=== PATIENT | female | born 1970 | race Caucasian/White ===

== ENCOUNTER 2020-01-31 14:22 | Outpatient (CLI) | payer OTHER, SELFPAY ==
--- NOTE | ~2020-01-31 | US_ITS ---
EXAMINATION: US thyroid EXAM DATE: 01/31/2020 14:54 INDICATION: Single nontoxic thyroid nodule. TECHNIQUE: Multiple grayscale and Doppler images of the thyroid were obtained (by a technologist who performed the scan) and subsequently reviewed. Individual nodules and recommendations may be reporte d in accordance with TI-RADS system as designated by the 2017 ACR White Paper TI-RADS committee. The re is no prior study for comparison. FINDINGS: The right thyroid lobe measures 5.5 x 1.5 x 1.8 cm, the left measured 4.6 x 0.8 x 1.0 cm. Mildly diff usely heterogeneous thyroid echogenicity. There are scattered subcentimeter thyroid nodules, largest in the right thyroid lobe category TR 4 measuring 9 mm. IMPRESSION: Multiple small thyroid nodules; optional one-year follow-up ultrasound. Reviewed, dictated and finalized at location [facility].
== END 2020-01-31 14:23 | disposition home or self-care (01) ==
LOC: ANHIMG 14:26
PROVIDERS: PCP Physician Assistant; Visit Provider Otolaryngology
DX: E04.1 Nontoxic single thyroid nodule (principal)
CPT/HCPCS: 76536

== ENCOUNTER 2020-12-13 16:07 | Outpatient (CLI) | payer OTHER, SELFPAY ==
--- NOTE | ~2020-12-13 | US_ITS ---
EXAMINATION: US thyroid EXAM DATE: 12/13/2020 16:33 INDICATION: Thyroid nodule. TECHNIQUE: Multiple grayscale and Doppler images of the thyroid were obtained (by a technologist who performed the scan) and subsequently reviewed. Individual nodules and recommendations may be reporte d in accordance with TI-RADS system as designated by the 2017 ACR White Paper TI-RADS committee. Comp sharonson is made to prior examination from 01/31/2020. FINDINGS: The right thyroid lobe measures 4.8 x 1.6 x 1.7 cm, the left measuring 4.5 x 1.2 x 1.2 cm. Mildly dif fusely heterogeneous thyroid echogenicity with scattered small thyroid nodules. Largest nodule identified is a right thyroid lobe inferiorly measuring 9 x 5 x 8 mm, mixed cystic and solid (1 point), hypoechoic (2 points), wider than tall, smooth well defined margin, without echogen ic foci, category TR3 for this nodule. These dimensions are not significantly changed compared to pr evious examination. IMPRESSION: 1. Mild thyromegaly. 2. Small thyroid nodules unchanged, likely benign. Return to clinical follow-up. If additional palpa ble abnormality develops, consider repeat ultrasound. Reviewed, dictated and finalized at location B. IMPRESSION: 1. Mild thyromegaly. 2. Small thyroid nodules unchanged, likely benign. Return to clinical follow-u p. If additional palpable abnormality develops, consider repeat ultrasound.
== END 2020-12-13 16:08 | disposition home or self-care (01) ==
PROVIDERS: PCP Physician Assistant; Visit Provider Otolaryngology
DX: E04.2 Nontoxic multinodular goiter (principal)
CPT/HCPCS: 76536

== ENCOUNTER 2021-08-12 10:10 | Outpatient (CLI) | payer OTHER, SELFPAY ==
--- NOTE | ~2021-08-12 | CT_ITS ---
EXAMINATION: CT diagnostic chest w con DATE: 08/12/2021 10:39 INDICATION: Chest pain TECHNIQUE: Computed tomography (CT) of the chest was performed with 75 cc Omnipaque 350 intravenous c ontrast. Automated exposure control and iterative reconstruction technique were employed. Exam dose: 178.63 mGy-cm total exam DLP. COMPARISON: None FINDINGS: 7 mm hypoattenuating lesion of the right lobe of the thyroid gland. Normal heart size. No pericardial effusion. No thoracic aortic aneurysm or dissection. No hilar or mediastinal mass lesion or lymphadenopathy. No pulmonary infiltrate or consolidation or pulmonary mass lesion. No pneumothorax. Diffuse hepatic steatosis. Normal morphology of the adrenal glands. Included skeletal structures are unremarkable; no suspicious osteolytic or osteoblastic lesions. IMPRESSION: No significant abnormality of the chest 7 mm hypoattenuating lesion of right lobe of thyroid gland Reviewed, dictated and finalized at [facility]. Reviewed, dictated and finalized at location A.
== END 2021-08-12 10:11 | disposition home or self-care (01) ==
PROVIDERS: PCP Physician Assistant; Visit Provider Nurse Practitioner
DX: R07.89 Other chest pain (principal)
CPT/HCPCS: 71260; Q9967

== ENCOUNTER 2022-11-30 14:49 | Outpatient (CLI) | payer OTHER, SELFPAY ==
--- NOTE | ~2022-11-30 | MM_ITS ---
EXAMINATION: MM screening pepper BI w audrey HISTORY: Screening TECHNIQUE: Craniocaudal and mediolateral oblique 3-D tomosynthesis images were obtained and synthetic 2-D images were generated. CAD analysis was submitted and interpreted. COMPARISON: Comparison to multiple prior studies sequentially, with oldest reviewed study dated 10/16/2009. BREAST PARENCHYMAL COMPOSITION: Breast composed of scattered areas of fibroglandular density FINDINGS: Decreased size of biopsy-proven benign mass upper outer quadrant of the left breast compare d with prior studies. There is no evidence of suspicious mass, calcification, or architectural distor tion to suggest malignancy in either breast. There has been no suspicious interval change. IMPRESSION: 1. No mammographic evidence of malignancy. 2. Recommend routine screening mammography in one year. BI-RADS Category 2: Benign finding(s). Reviewed, dictated and finalized at location A.
== END 2022-11-30 14:50 | disposition home or self-care (01) ==
LOC: ANHIMG 14:51
PROVIDERS: PCP Physician Assistant; Visit Provider Physician Assistant
DX: Z12.31 Encounter for screening mammogram for malignant neoplasm of breast (principal)
CPT/HCPCS: 77063; 77067